=== PATIENT | male | born 1960 | race Caucasian/White ===

== ENCOUNTER 2020-11-14 10:48 | Day surgery (SDC) | payer MEDICAID ==
[~2020-11-14] VITALS: Ht 177.8 cm; Wt 110.2 kg
[~2020-11-14 10:48] MED LIST: AMLO-489 PO; GABA100C9 PO; HYDR-4611 PO
[2020-11-14] MEDS ORDERED: CIPROFLOXACIN 400MG/200ML 200 ML IV ONE (11:08)
[2020-11-14] MEDS ORDERED: MEPERIDINE HCL (25 MG/ML) 1ML VIAL ONE (11:27)
[2020-11-14] MEDS ORDERED: MIDAZOLAM HCL 1MG/1ML-2 ML VIAL ONE (11:28)
[2020-11-14] MEDS ORDERED: fentaNYL CITRATE 100 MCG/2 ML VL ONE (11:28)
[2020-11-14] MEDS ORDERED: hydrALAZINE HCL 20 MG/ML VL IV PRN (11:30)
[2020-11-14] MEDS ORDERED: LABETALOL HCL 5 MG/ML 4ML SYRINGE IV PRN (11:30)
[2020-11-14] MEDS ORDERED: HYDROmorphone HCL 2 MG/ML VL IV PRN (11:30)
[2020-11-14] MEDS ORDERED: ePHEDrine SULFATE 50 MG/ML AMP IV PRN (11:30)
[2020-11-14] MEDS ORDERED: ONDANSETRON HCL 4 MG/2 ML VIAL IV PRN (11:30)
[2020-11-14] MEDS ORDERED: MIDAZOLAM HCL 1MG/1ML-2 ML VIAL IV PRN (11:30)
[2020-11-14] MEDS ORDERED: MORPHINE SULF INJ 2 MG/ML SYRINGE 1ML IV PRN (11:30)
[2020-11-14] MEDS ORDERED: DexAMETHasone SOD PHOS 10MG/1ML VIAL INJ ONE (11:41)
[2020-11-14] MEDS ORDERED: PROPOFOL 10 MG/ML 20 ML IV ONE (11:41)
[2020-11-14 12:50] VITALS: BP 147/94
== END 2020-11-14 13:05 | disposition home or self-care (01) ==
LOC: SUR 10:48
PROVIDERS: ATTEND Urology
DX: N35.819 Other urethral stricture, male, unspecified site (principal); K44.9 Diaphragmatic hernia without obstruction or gangrene; I10 Essential (primary) hypertension; E11.9 Type 2 diabetes mellitus without complications; E66.9 Obesity, unspecified; E11.40 Type 2 diabetes mellitus with diabetic neuropathy, unspecified; F17.210 Nicotine dependence, cigarettes, uncomplicated; I25.10 Atherosclerotic heart disease of native coronary artery without angina pectoris; Z20.822 Contact with and (suspected) exposure to COVID-19; Z79.899 Other long term (current) drug therapy; Z68.34 Body mass index [BMI] 34.0-34.9, adult
CPT/HCPCS: 51715; 52276; J0744; J1100; J2175; J2250; J2704; J3010; U0003